=== PATIENT | male | born 1945 | race Caucasian/White ===

== ENCOUNTER 2017-05-08 07:21 | Inpatient (IN) | payer MEDICARE ==
[~2017-05-08] VITALS: Ht 180.3 cm; Wt 91.6 kg
[2017-05-08] VITALS (8 sets, daily range): BP systolic 126–165; BP diastolic 62–100
[2017-05-08 07:40] LABS: ABSOLUTE BASOPHILS 0.1 thou/uL (0.0-0.2); ABSOLUTE EOSINOPHILS 0.1 thou/uL (0.0-0.7); ABSOLUTE LYMPHOCYTES 1.1 thou/uL (0.8-5.3); ABSOLUTE MONOCYTES 0.6 thou/uL (0.0-1.2); ABSOLUTE NEUTROPHILS 4.2 thou/uL (1.6-8.1); BASOPHILS 1.1 %; EOSINOPHILS 1.7 %; HEMATOCRIT 47.8 % (42.0-52.0); HEMOGLOBIN 16.1 gm/dL (14.0-18.0); LYMPHOCYTES 18.6 %; MCH 30.1 pg (26.0-34.0); MCHC 33.6 g/dL (28.0-37.0); MCV 89.6 fL (80.0-100.0); MONOCYTES 9.9 %; NUCLEATED RBCS 0 /100WBC; PLATELET COUNT* 295 thou/uL (150-400); POLYS 68.7 %; RBC 5.34 mil/uL (4.50-6.00); RDW-CV 13.1 % (10.5-14.5); WBC 6.1 thou/uL (4.0-11.0)
[2017-05-08 07:49] LABS: ANION GAP 6 mmol/L (7-16); BUN 17 mg/dL (7-18); CALCIUM 8.7 mg/dL (8.5-10.1); CHLORIDE 105 mmol/L (98-107); CO2 29 mmol/L (21-32); CREATININE 1.3 mg/dL (0.6-1.3); GLUCOSE 110 mg/dL (70-99); POTASSIUM 4.8 mmol/L (3.5-5.1); SODIUM 140 mmol/L (136-145)
[2017-05-08 07:56] LABS: ALBUMIN 3.7 g/dL (3.4-5.0); ALKALINE PHOSPHATASE 95 U/L (46-116); SGOT 22 U/L (15-37); SGPT 31 U/L (30-65); TOTAL BILIRUBIN 0.5 mg/dL (<0.1-1.0); TOTAL PROTEIN 7.6 g/dL (6.4-8.2); TROPONIN-I LEVEL <0.06 ng/mL (<0.06)
[2017-05-08 08:23] LABS: APTT 28.7 Seconds (25.0-31.3); PROTIME 9.8 Seconds (9.20-11.50)
[2017-05-08 08:32] LABS: POC CA IONIZED 4.5 mg/dL (4.5-5.3); POC CREATININE 1.2 mg/dL (0.6-1.3); POC HEMOGLOBIN 15.6 g/dL (12.0-17.0); POC POTASSIUM 4.7 mmol/L (3.5-4.9)
--- NOTE | 2017-05-08 08:47 | NUR ---
PT STATES NAUSEA COMES AND GOES STATES H/A STILL 06/23
[2017-05-08] MEDS ORDERED: ASPIR 8181 MG PO (08:48)
--- NOTE | 2017-05-08 09:25 | NUR ---
PT ARRIVED ON TELE FROM ER. REPORT TAKEN FRON JAS AGUILAR. PT ON CARDIAC MONITER TRACING SR 1ST DEGREE HR 81. PT C/O HEADACHE PAIN RATES A 6 ON PAIN SCALE. PT STATES HE WAS GIVEN ASPIRIN AND ZOFRAN IN ER 30 MIN AGO AND STILL HAS NAUSEA. PT R/T HIS HEADACHE. PT DESCRIPTION PAIN RADIATES AROUND HIS L EYE DIRECTLY ABOVE AND TO THE RIGHT. GAVE PT A COLD COMPRESS . VSS WNL, PT IS AFEBRILE. HE IS ON ROOM AIR AND HAS CLEAR LUNGS. PT STATES HE HAS A HYPER THYROID AND AN ENLARGED POSTRATE. HIS SPEECH IS CLEAR AND ANSWERS SPONTANEOUSLY.PT STATES HE WAS BORN CROSS EYED AND HAD 2 SURGERIES FOR THIS. 1ST SURG NOT ENOUGH MUSCLE CUT 2ND SURG TOO MUCH CUT PER PT. WM.
[2017-05-08 11:42] LABS: CHOLESTEROL 175 mg/dL (<200); HDL CHOLESTEROL 58 mg/dL (>40); LDL CHOLESTEROL 103 mg/dL (<100); TRIGLYCERIDE 73 mg/dL (<150); VLDL 15 mg/dL (<40)
[2017-05-08 11:43] LABS: SERUM ASSESSMENT Clear
[2017-05-08] MEDS ORDERED: FLOMAX0.4 MG PO (11:52)
[2017-05-08] MEDS ORDERED: METHIMAZOLE10 MG PO (11:52)
--- NOTE | 2017-05-08 12:01 | NUR ---
PTS IS HERE AND STATES PT HAS SEEN SQUIGGLEY LINES IN L EYE FOR 2 TO 3 MONTHS AND HAS NOT BEEN SLEEPING WELL. [facility] SHE SAID HIS APHSIA WAS COMING AND GOING. NOTIFIED DR BY YOU CALL ME AND HE CALLED BACK FOR UPDATE.
--- NOTE | 2017-05-08 14:15 | NUR ---
DR ALSTON CALLED RE PTS MRI. CALLED DR LUCAS AND GAVE REPORT FROM DR ALSTON. CALL PUT IN DR RIOS. ORDER FROM DR RIVERA FOR A SOFT DIET.
--- NOTE | 2017-05-08 15:01 | 2DMMODE ---
[place] [address] 2 D/M-MODE ECHOCARDIOGRAM Name: SHAKIRA MILLARD Room: [address] IN [facility] [id number] Admission: 05/08/17 Attend Phys: Lan Viveros Discharge: Date of : 47 Date of Service: 05/08/17 [facility] Report #: [id number] THIS REPORT FOR: //name// APPROVED REPORT Study performed: 05/08/2017 11:57:53 EXAM: Comprehensive 2D, Doppler, and color-flow Echocardiogram and bubble study Patient Location: In-Patient Room #: [facility] Status: routine BSA: 2.15 HR: 74 bpm BP: 139/82 mmHg Rhythm: NSR Other Information Study Quality: Good Indications CVA/TIA Echo Enhancing Agent Indication: Rule out Shunt Agent(s) / Amount(s) Used: Agitated Saline 10 cc 2D Dimensions LVEF(%): 63.91 (>50%) IVSd: 14.37 (7-11mm) LVOT Diam: 20.11 (18-24mm) LVDd: 34.76 mm PWd: 11.54 (7-11mm) Ascending Ao: 31.61 (22-36mm) LVDs: 22.97 (25-40mm) Aortic Root: 30.72 mm Camejo's LVEF: 63.91 % Volumes Left Atrial Volume (Systole) LA ESV Index: 17.90 mL/m2 Aortic Valve AoV Peak Rafa.: 1.20 m/s AO Peak Gr.: 5.78 mmHg LVOT Max P.96 mmHg AO Mean Gr.: 2.86 mmHg LVOT Mean P.99 mmHg LVOT Max V: 0.99 m/s AO V2 VTI: 25.22 cm LVOT Mean V: 0.65 m/[place] [address] 2 D/M-MODE ECHOCARDIOGRAM Name: SHAKIRA MILLARD Room: [address] IN .R.#: [id number] Admission: 05/08/17 Attend Phys: Lan Viveros Discharge: Date of : 47 Date of Service: 05/08/17 1500 Report #: [id number] CARLIN (VTI): 2.52 cm2 LVOT V1 VTI: 19.98 cm Mitral Valve E/A Ratio: 0.74 MV Decel. Time: 279.71 ms MV E Max Rafa.: 0.53 m/s MV PHT: 81.12 ms MVA (PHT): 2.71 cm2 TDI E/Lateral E': 6.63 E/Medial E': 7.57 Medial E' Rafa.: 0.07 m/s Lateral E' Rafa.: 0.08 m/s Pulmonary Valve PV Peak Rafa.: 0.86 m/s PV Peak Gr.: 2.93 mmHg Left Ventricle The left ventricle is normal size. There is normal LV segmental wall motion. Mild concentric left ventricular hypertrophy. Left ventricular systolic function is normal. The left ventricular ejection fraction is within the normal range. LVEF is 65-70%. Grade I - abnormal relaxation pattern. Right Ventricle The right ventricle is normal size. The right ventricular systolic function is normal. Atria The left atrium size is normal. Interatrial septum is intact without evidence of ASD or PFO. The right atrium size is normal. Aortic Valve The aortic valve is normal in structure. No aortic regurgitation is present. There is no aortic valvular stenosis. Mitral Valve The mitral valve is normal in structure. There is no mitral valve regurgitation noted. No evidence of mitral valve stenosis. Tricuspid Valve The tricuspid valve is normal in structure. Unable to assess PA pressure. Trace tricuspid regurgitation. Pulmonic Valve The pulmonary valve is normal in structure. There is no [place] [address] 2 D/M-MODE ECHOCARDIOGRAM Name: SHAKIRA MILLARD Room: [address] IN M.R.#: [id number] Admission: 05/08/17 Attend Phys: Lan Viveros Discharge: Date of : 47 Date of Service: 05/08/17 1500 Report #: [id number] valvular regurgitation. Great Vessels The aortic root is normal in size. IVC is normal in size and collapses with >50% inspiration Pericardium There is no pericardial effusion. <Conclusion> Mild concentric left ventricular hypertrophy. LVEF is 65-70%. Interatrial septum is intact without evidence of ASD or PFO. <ELECTRONICALLY SIGNED> By: Ugo Narayan MD, FACC 05/08/17 1500 1500 1500 Ugo Narayan MD, FACC /INF
--- NOTE | 2017-05-08 15:34 | EKG ---
[place] [address] ELECTROCARDIOGRAM REPORT Name: SHAKIRA MILLARD Room: [address] ADM IN .R.#: [id number] Admission: 05/08/17 Attend Phys: Lan Cool, Discharge: Date of : 47 Report #: [id number] THIS REPORT FOR: //name// [facility] ED Test Date: 2017-05-08 Test Time: 08:17:04 Pat Name: SHAKIRA MILLARD Department: Room: [facility] Gender: M Car Mechanic: BALDO : 1945 Requested By: Nathaniel Kat Order Number: [id number] MD: Ugo Narayan Measurements Intervals [place] Rate: 83 P: 30 CT: 198 QRS: 46 QRSD: 95 T: 43 QT: 380 QTc: 447 Interpretive Statements Sinus rhythm No previous ECG available for comparison Electronically Signed On 05-08-2017 15:34:43 REAL ESTATE EXECUTIVE ASSISTANT by Ugo Narayan [email or web address] <ELECTRONICALLY SIGNED> By: Ugo Narayan MD, [facility] 05/08/17 1534 0817 6 Ugo Narayan MD, FACC /EPI
--- NOTE | 2017-05-08 17:45 | NUR ---
PT HAS BEEN SLEEPING MOST OF THIS SHIFT. HE STATED HE WAS FRUSTRATED WHEN HE CANNNOT GET HIS THOUGHTS QUICK ENOUGH. PT ON A NECTAR THICK MECHANICAL SOFT DIET FOR THE NEXT FEW DAYS PER ST. PT STATES HIS HEADACHE PAIN HAS STAYED AROUND 3 AND IS MUCH BETTER. PT'S STATES HIS SPEECH IS CLEAR BUT THOUGHT PROCESSES SOMETIMES CAN TAKE A MOMENT AND SHE [facility]. SHE SAID HE HAS BEEN FRUSTRATED WITH THIS. DR RIOS CONSULTED. PT SCORED 0 ON NIH. HOURLY ROUNDING COMPLETE. EDUCATION GIVEN ON DEMAND.
--- NOTE | 2017-05-08 22:00 | NUR ---
UPON ASSESSMENT, PATIENT NOTICED TO HAVE SEVERE APHASIA AND MILD-MODERATE DYSARTHRIA WITH NIH SCORE 3. PATIENT WAS PREVIOUSLY SCORED 0. DR. RIOS NOTIFIED OF CHANGE IN NIH SCORE AND RESULTS OF CAROTID US COMMUNICATED AT THIS TIME. DR. RIOS ORDERED A 500CC BOLUS TO INCREASE PATIENT'S BP, KEEP PATIENT FLAT AT ALL TIMES, AND STAT CTA HEAD/NECK. PATIENT TAKEN DOWN FOR SCAN, TOLERATED WELL. PATIENT BACK ON UNIT AT THIS TIME. PATIENT CONTINUES TO C/O HEADACHE. RECIEVED ORDERS FOR PRN TYLENOL. WILL ADMINISTER. CALL LIGHT WITHIN REACH
--- NOTE | 2017-05-08 23:41 | NUR ---
UPON OBTAINING VS, PATIENT REQUESTED ASSISTANCE TO USE THE URINAL. AT THIS TIME, PATIENT NOTED TO HAVE DIFFICULTY WITH MOVEMENT IN RIGHT ARM. PATIENT WAS UNABLE TO LIFT ARM. PATIENT CONTINUING TO HAVE APHASIA AND DYSARTHRIA. VASCULAR SURGERY PAGED MULTIPLE TIMES. EVENTUALLY SPOKE WITH DR. BURCH AT 9815. NO ORDERS RECIEVED PER VASCULAR HE STATED "THIS IS A MEDICAL DECISION AND SURGERY IS NOT BEING PERFORMED TONIGHT, I WILL SEE THE PATIENT IN THE MORNING AND SEE HOW HE IS DOING CLINICALLY. CONSULT WITH NEUROLOGY TO SEE WHAT BLOOD THINNERS HE WOULD LIKE THE PATIENT TO RECIEVE." THIS CONVERSATION COMMUNICATED TO DR. RIOS. ORDERS RECIEVED FOR ONETIME DOSE OF PLAVIX, NS BOLUS, KEEP PATIENT LYING FLAT, AND TRANSFER TO ICU, IF OK WITH PRIMARY. DR. PEARSON PAGED AND ORDERS OBTAINED TO GO AHEAD AND TRANSFER PATIENT TO ICU. ATTEMPTED TO CALL ON BOTH NUMBERS ON FILE, MESSAGE LEFT NOTIFYING HER THAT THERE WERE UPDATES TO BE GIVEN AND TO CALL BACK. UNIT NUMBER LEFT IN MESSAGE.
[2017-05-09] VITALS (26 sets, daily range): BP systolic 111–168; BP diastolic 51–100
--- NOTE | 2017-05-09 00:16 | CON ---
[address] [address] CONSULTATION Name: SHAKIRA MILLARD Room: [address] ADM IN M.R.#: [id number] Admission: 05/08/17 Attend Phys: Lan Cool, Discharge: Date of : 47 Report #: [id number] THIS REPORT FOR: //name// CC: FAM unknown Lan Cool [facility] DATE OF SERVICE: 05/08/2017 HISTORY OF PRESENT ILLNESS: This is a 72-year-old male patient who was evaluated by me because he got up at 5:30 this morning and noticed that his speech was slurred and he had some weakness on the right side. His symptoms have improved, but he still has some speech difficulty. The symptoms are moderately severe now, but he had more difficulty earlier today. It came spontaneously without any trauma and nothing makes it better or worse. REVIEW OF SYSTEMS: Indicate that he did not have any stroke in the past. He was taking a baby aspirin when it happened. He had started taking baby aspirin 6 months ago because his nurse practitioner and his advised him to do that. He did not have any cardiac issues. He had some ophthalmological issues since. He does not have any new ENT, cardiac, respiratory, GI, , musculoskeletal, constitutional, dermatological, hematological, psychiatric, throat, allergic, endocrine symptom associated with present symptomatology. PAST MEDICAL HISTORY: Negative for stroke. FAMILY HISTORY: Negative for early age stroke. SOCIAL HISTORY: The patient used to smoke and drink alcohol, but gave up a few years ago. It was not because of any medical reason and it was because his told him to. PHYSICAL EXAMINATION: Indicate that the patient is alert, responsive, able to follow simple command. He has moderate amount of hesitation on some words, but he is still able to do the conversation most of the time, but sometime he struggles. He believes his memory and fund of knowledge is his baseline. Cranial nerve examination 2-12 is difficult to carry out because of his baseline ophthalmological issues. Because of the same thing, it is difficult to check for hemianopsia, but I do not see any facial palsy or any other abnormality there. His strength, sensation, reflexes and tones are symmetrical. He does not have any cerebellar sign. I could not look at the patient's fundus. He is a well-developed individual who does not have any dysmorphic features of eyes, ears and face. He does not have any respiratory difficulty or rhonchi on either side. His heart shows no atrial fibrillation, no abnormality of the heart sound or murmur. He has no edema, cyanosis or jaundice. His pulses are palpable. His blood pressure is 152/87, respirations 16, pulse is 79, and temperature is [facility] [address] [place] [address] CONSULTATION Name: SHAKIRA MILLARD Room: [address] IN M.R.#: [id number] Admission: 05/08/17 Attend Phys: Lan Cool, Discharge: Date of : 47 Report #: [id number] 97.3. LABORATORY DATA: His white count is 6.1. His sodium is normal. His MRI demonstrated acute CVA. His MRA of the brain looks unremarkable. IMPRESSION: 1. Cerebrovascular accident. 2. His vessels look clean so far and we may have to look at closely for any source of cardiac embolization. 3. This happened in spite of being on low-dose of aspirin. 4. He needs to be checked for dyslipidemia. RECOMMENDATIONS: 1. MRA of the carotids. 2. Lipid profile. 3. Full ophthalmology examinations including visual field as an outpatient. 4. PT/OT evaluation. 5. After the workup, we may have to do 30 days event monitoring as an outpatient. 6. Presently, we will put him on full-dose aspirin, but later on, may have to change it to Plavix. All of it was discussed with the patient and the patient is agreeable with that. Thank you very much for this referral and if you have any question, please feel free to contact me. Addendum This addendum is being added at time of signing this order. I talked to multiple times the nurses riri. 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 His symptoms are fluctuating with aggravation of his symptoms.He may be trying to occlude his vessel. Unfortuntely there is nothing much can be done about that. I had talked the nurses to page vascular surgery for me and see if I can talk to them to see if they have anything to offer. I had given my phone number to them. I have not been able to talk to them but as I understand from nurses they have informed her that there is nothhing they can do. I have given him fluids. We will give him Plavix. Heparin has never been found be effective in this siuation. Pressors had been tried but the value is questionable. We will try to keep him flat. Unfortunately many of these patients land up completing their strokes in these circustance. I also called [facility] stroke team and they also do not have anything else to offer except the things mentioned above. More than 60 minutes of time was spent taking care of this patient today <ELECTRONICALLY SIGNED> By: Yuval Adkins MD 05/09/17 0016 1510 [id number] trey Leahy
--- NOTE | 2017-05-09 00:34 | NUR ---
PT TRANSFERRED TO ICU BED 3 FROM TELE AT 0020. NIH AND COMPLETE REASSESSMENT COMPLETED, SEE DOCUMENTATION. PT EXHIBITS MILD DYSARTHRIA WITH SOME SLOWING OF SPEECH AND WORD RECALL, HOWEVER SPOKEN WORKS ARE CLEAR. PT IS ABLE TO HOLD BOTH ARMS EXTENDED AND PARALLEL WITHOUT DRIFT AND MINIMAL WAIVERING OF RUE. CALL RECEIVED FROM DR RIOS AT THIS TIME STATING THAT THE GOAL FOR TONIGHT TO KEEP PT FLAT AND MAINTAIN SBP >140-150. AWAITING ORDERED 500ML NS BOLUS IN PYXIS. DR RIOS STATED TO START LEVOPHED GTT TO MAINTAIN SBP >140 IF FLUID BOLUS IS NOT ADEQUATE. CALL LIGHT WITHIN REACH.
[2017-05-09 04:39] LABS: HEMATOCRIT 44.9 % (42.0-52.0); HEMOGLOBIN 15.2 gm/dL (14.0-18.0); MCH 30.1 pg (26.0-34.0); MCHC 33.8 g/dL (28.0-37.0); MCV 89.1 fL (80.0-100.0); MPV 8.2 fl. (7.2-11.1); RBC 5.04 mil/uL (4.50-6.00); RDW-CV 13.1 % (10.5-14.5); WBC 9.4 thou/uL (4.0-11.0)
[2017-05-09 04:53] LABS: ALBUMIN 3.1 g/dL (3.4-5.0); CALCIUM 7.9 mg/dL (8.5-10.1); POTASSIUM 4.5 mmol/L (3.5-5.1); TOTAL BILIRUBIN 0.5 mg/dL (<0.1-1.0); TOTAL PROTEIN 6.6 g/dL (6.4-8.2)
--- NOTE | 2017-05-09 07:21 | NUR ---
PT REMAINS STABLE, NIH HAS REMAINED 1 THROUGHOUT THE NIGHT. PT HAS DENIED PAIN AND SOA. WHILE SLEEPING PTS O2 SAT INTERMITTENTLY DROPPED TO MID 80'S, 2L O2 PLACED PER NC. LEVOPHED GTT STARTED DUE TO SBP <140, TITRATED TO 5 MCG/MIN WHICH HAS MAINTAINED SBP >140. IVF INFUSING ORDERED. CALL LIGHT WITHIN REACH.
[2017-05-09 09:33] LABS: HEMATOCRIT 45.2 % (42.0-52.0); HEMOGLOBIN 15.3 gm/dL (14.0-18.0); MCH 30.2 pg (26.0-34.0); MCHC 33.8 g/dL (28.0-37.0); MCV 89.4 fL (80.0-100.0); MPV 7.9 fl. (7.2-11.1); RBC 5.06 mil/uL (4.50-6.00); RDW-CV 12.6 % (10.5-14.5); WBC 7.1 thou/uL (4.0-11.0)
[2017-05-09 09:40] LABS: APTT 29.5 Seconds (25.0-31.3); PROTIME 10.1 Seconds (9.20-11.50)
--- NOTE | 2017-05-09 11:02 | NUR ---
PLEASE RESUBMIT ORDERS DUE TO CHANGE IN STATUS WHEN APPROPRIATE
--- NOTE | 2017-05-09 12:17 | NUR ---
PATIENT CARE ASSUMED AT 0700. PATIENT AWAKE UPON ENTERING ROOM WITH UTILIZATION REVIEW RN NURSE. NIH COMPLETED, RESULT IS 1 FOR VERY MILD DISARTHRIA AND WORD FINDING DIFFICULTIES. WAS ON LEVOPHED UPON ASSUMING CARE PER NEUROLOGY TO KEEP SYSTOLIC BP 140-150. NO CARDIAC HISTORY OR ISSUES WITH BLOOD PRESSURE NOTED. LEVOPHED TURNED OFF SYSTOLIC BP BEGAN TO RISE TO 180S. CURRENTLY BACK TO SYSTOLIC 140-150 RANGE. PAITENTS MAIN COMPLAINT IS BURNING UPON URINATION. THIS NURSE GAVE PATIENT CLEAN URINAL FOR SAMPLE, BUT HE HAS NOT VOIDED SINCE RECIEVING URINAL. NEUROLOGY SAW PATIENT AND DISCONTINUED FLUIDS, BUT PATIENT NOT TAKING PO FLUIDS WELL HE DOES NOT LIKE THE NECTAR THICKENED FLUIDS. PER NEUROLOGY IF PATIENT CONTINUES TO NOT DRINK FLUIDS, FLUIDS WILL NEED TO BE REORDERED. VASCULAR SAW PATIENT, PLANS FOR SURGERY ON THURSDAY IF PATIENT'S SYMPTOMS WELL CONTROLELD. NEW IV STARTED IN RIGHT HAND. HEPARIN GTT ORDERED BY VASCULAR AND INITIATED. WILL CONTINUE WITH THIS PLAN OF CARE.
[2017-05-09 12:46] LABS: URINE BILIRUBIN NEGATIVE (Negative); URINE BLOOD 3+ (Negative); URINE CLARITY CLEAR; URINE COLOR YELLOW; URINE GLUCOSE-RANDOM NEGATIVE (Negative); URINE KETONES NEGATIVE (Negative); URINE LEUKOCYTES-REFLEX NEGATIVE (Negative); URINE NITRITE-REFLEX NEGATIVE (Negative); URINE PROTEIN NEGATIVE (Negative); URINE UROBILINOGEN 0.2 E.U./dl (0.2-1.0)
[2017-05-09 12:58] LABS: BACTERIA-REFLEX 1-9 Few /HPF (None Seen); CASTS None Seen /LPF (None Seen); CRYSTALS None Seen /LPF (None Seen); MUCUS 0-3 Light strn/LPF (None Seen); SQUAMOUS 0-3 Few /LPF (0-3); URINE WBC-REFLEX 0-5 Rare /HPF (0-5)
--- NOTE | 2017-05-09 17:29 | NUR ---
PATIENT PROGRESSING TOWARDS GOALS. AFTER CT IT WAS FOUND THAT PATIENT'S BLADDER WAS FULL. PATIENT WAS UNABLE TO VOID FULL BLADDER. BLADDER SCAN SHOWED >999 MLS. STRAIGHT CATHED WITH 850 OUT. RESIDUAL 150. PYRIDUM GIVEN SO URINE IS ORANGE AND CLEAR. UA SENT. ON IV ROCEPHIN FOR UTI AT THIS TIME. NIH SCALES REMAINS ONE. PATIENT GAINED APPETITE THROUGHOUT THE SHIFT, BUT IS RESISTANT TO THICKENED LIQUIDS. REPEAT BEDSIDE SWALLOW BY THIS RN. PATIENT TOLERATING THIN LIQUIDS WELL AT THIS TIME WITH NO COUGH, DROP IN O2, OR WET SOUNDING VOICE. PROVIDED WITH THIN LIQUIDS. PATIENT RESTING IN BED WITH PRESENT AT THIS TIME.
--- NOTE | 2017-05-09 22:00 | NUR ---
516CC BLADDER SCAN URINE RESIDUAL NOTED, PT USING URINAL TO VOID IMMEDIATLEY POST BLADDER SCAN DONE TO EMPTY BLADDER, VOIDING 25CC ORANGE URINE, STRAIGHT CATHETERIZATION PER ORDER, 450CC ORANGE URINE DRAINED.
[2017-05-10] VITALS (17 sets, daily range): BP systolic 103–158; BP diastolic 48–92
[2017-05-10 05:57] LABS: HEMATOCRIT 46.2 % (42.0-52.0); HEMOGLOBIN 15.5 gm/dL (14.0-18.0); MCH 30.3 pg (26.0-34.0); MCHC 33.5 g/dL (28.0-37.0); MCV 90.3 fL (80.0-100.0); MPV 8.1 fl. (7.2-11.1); RBC 5.11 mil/uL (4.50-6.00); RDW-CV 12.8 % (10.5-14.5); WBC 8.8 thou/uL (4.0-11.0)
--- NOTE | 2017-05-10 12:33 | EKG ---
[place] [address] ELECTROCARDIOGRAM REPORT Name: SHAKIRA MILLARD Room: [address] ADM IN M.R.#: [id number] Admission: 05/08/17 Attend Phys: Lan Cool, Discharge: Date of : 47 Report #: [id number] THIS REPORT FOR: //name// [facility] Test Date: 2017-05-09 Test Time: 13:56:55 Pat Name: SHAKIRA IMLLARD Department: Room: [address] Gender: M Traveling Sales Executive: CBK : 1945 Requested By: Lan Cool Order Number: [id number] Reading MD: José Antonio Castillo Measurements Intervals [place] Rate: 83 P: 39 ND: 195 QRS: 28 QRSD: 99 T: 36 QT: 360 QTc: 423 Interpretive Statements Sinus rhythm Compared to ECG 05/08/2017 08:17:04 No significant changes Electronically Signed On 05-10-2017 12:32:54 BUS INFO CONSULTANT by José Antonio Castillo [email or web address] <ELECTRONICALLY SIGNED> By: José Antonio Castillo MD, [facility] 05/10/17 1232 1356 [id number] José Antonio Castillo MD, FACC /EPI
--- NOTE | 2017-05-10 17:43 | NUR ---
PATIENT ASSESSMENT REMAINS UNCHANGED. LEFT CAROTID ENDARCTARECTOMY SCHEDULED FOR TOMORROW. DR. BURCH INFORMED PATIENT OF PROCEDURE AND RISKS. CONSENT SIGNED WITH THIS NURSE WITNESSING. PATIENT WILL BE NPO AFTER MIDNIGHT, AND IS AWARE OF THIS. REMAINS ON HEPARIN GTT, CURRENTLY AT 1255 UNITS/HR. APPT TO BE DRAWN AT 1800. PATIENT HAS RESTED ADEQUATELY ALL DAY. BOTH Q6H BLADDER SCANS DURING THIS SHIFT HAVE BEEN LESS THAN 350. URINE REMAINS BLOODY WITH SMALL CLOTS AFTER STRAIGHT CATH X2 IN THE LAST 24 HOURS. DENIES FURTHER NEEDS FROM NURSING AT THIS TIME.
[2017-05-11] VITALS (14 sets, daily range): BP systolic 90–164; BP diastolic 47–95
--- NOTE | 2017-05-11 06:40 | NUR ---
PROGRESSING TOWARDS GOALS, RESTING QUIETLY WITH EYES CLOSED MOST OF NOC, EASILY AROUSABLE TO VERBAL STIMULI, DENIES PAIN OR DISCOMFORT, PVR THIS AM 417, PT REFUSED STRAIGHT CATHETER ORDERED FOR PVR >350CC, EDUCATED ADVERSE EFFECTS URINE RESIUAL INCREASES, PT VERBALIZED UNDERSTANING, STATES "GIVE ME A LITTLE MORE TIME TO WORK ON GOING", ABLE TO VOID 100CC DARK TEA URINE VIA URINAL 15 MIN POST BLADDER SCAN. SHANNEN SOA, REMAINS ON OXYGEN 2L PER NC, SA02 =>96% , NSR TRACING HEALTH INFORMATION MANAGERS, NIH REMAINS 1, NPO AFTER MIDNIGHT FOR ENDARECTOMY TODAY.
[2017-05-11 07:03] LABS: HEMOGLOBIN 15.5 gm/dL (14.0-18.0); MCH 30.3 pg (26.0-34.0); MCHC 33.6 g/dL (28.0-37.0); MCV 90.2 fL (80.0-100.0); MPV 8.1 fl. (7.2-11.1); RBC 5.1 mil/uL (4.50-6.00); RDW-CV 13.1 % (10.5-14.5); WBC 6.8 thou/uL (4.0-11.0)
[2017-05-11 07:30] LABS: ALBUMIN 3.2 g/dL (3.4-5.0); ALKALINE PHOSPHATASE 87 U/L (46-116); ANION GAP 4 mmol/L (7-16); BUN 18 mg/dL (7-18); CALCIUM 8.5 mg/dL (8.5-10.1); CHLORIDE 105 mmol/L (98-107); CO2 30 mmol/L (21-32); CREATININE 1.2 mg/dL (0.6-1.3); GLUCOSE 102 mg/dL (70-99); MAGNESIUM 2.2 mg/dL (1.8-2.4); POTASSIUM 4.4 mmol/L (3.5-5.1); SGOT 27 U/L (15-37); SGPT 29 U/L (30-65); SODIUM 139 mmol/L (136-145); TOTAL BILIRUBIN 0.4 mg/dL (<0.1-1.0); TROPONIN-I LEVEL <0.06 ng/mL (<0.06)
--- NOTE | 2017-05-11 10:21 | NUR ---
PATIENT CARE ASSUMED AT 0700. PATIENT AOX4 UPON ENTERING ROOM. DENIES PAIN. NIH 1. REMAINS ON HEPARIN GTT PRIOR TO CEA AT 1400. HEPARIN TO BE STOPPED IN PRE-OP PER DR BURCH. CONSENT SIGNED. PATIENT HAS BEEN NPO SINCE MIDNIGHT. IN WITH PATIENT. BOTH DENY FURTHER NEEDS FROM NURSING AT THIS TIME.
--- NOTE | 2017-05-11 10:30 | NUR ---
CHART REVIEWED, SPOKE WITH PT. HE LIVES AT HOME WITH HIS , HAS BEEN ACTIVE AND INDEP INCLUDING WORKING. PT FEELS THAT HIS SPEECH IS BACK TO BASELINE. PT TO HAVE CAROTID ENDARTERECTOMY TODAY. PT IS HOPING HE CAN GO HOME TOMORROW. PT DENIES ANY DISCHARGE NEEDS. DISCUSSED ROLE OF CASE MGT, WILL CONTINUE TO FOLLOW. [facility]
--- NOTE | 2017-05-11 12:09 | NUR ---
PATIENT REQUESTING NOT TO BE STRAIGHT CATHED FOR PVR OF 535. WANTS TO ATTEMPT TO URINATE ON HIS OWN.
--- NOTE | 2017-05-11 16:18 | NUR ---
PATIENT LEFT UNIT FOR LEFT CEA AT 1538.
--- NOTE | 2017-05-11 18:56 | NUR ---
PATIENT RETURNED FROM SURGERY OF LEFT CAROTID AT 1745. RETURNED AWAKE. SIMPLE MASK PLACED ON PATIENT AT 15L. WEANED TO 2L NC TO MAINTAIN SATS ABOVE 92%. PATIENT AOX4. PLEASANT. DENIES PAIN. INCISION SITE TO LEFT NECK REMAINS INTACT WITH DERMABOND IN PLACE. RIGHT RADIAL ART LINE IN PLACE. VITALS WITH EXCEPTION OF BLOOD PRESSURE IN NORMAL LIMITS. BLOOD PRESSURES SYSTOLIC 200/80S. ONETIME LABETALOL GIVEN PER DR YAP. BLOOD PRESSURE TRENDING DOWN. ABLE TO TOLERATE FLUIDS. PROVIDED WITH DINNER. NIH CURRENTLY A 1 FOR CONTINUED MILD WORD FINDING DIFFICULTIES. ALLOWED FAMILY TO VISIT WITH PATIENT. DENIES FURTHER NEEDS FROM NURSING. REPORT GIVEN TO JAS ALMEIDA.
--- NOTE | 2017-05-11 21:30 | NUR ---
PT UNABLE TO VOID POST ENDARTECTOMY PROCEDURE, 904ML URINE RESIDUAL NOTED PER BALDDER SCAN, PT GRIMACING WITH PALPATION TO BLADDER, 800CC DARK CONTRERAS URINE RETURN VIA STRAIGHT CATHETERIZATION, HOME DOSE FLOMAX STARTED TONIGHT PER ORDER. SON AT BEDSIDE, PT AWAKE, ALERT, AND CONVERSATIVE, INSTRUCTED USE OF CALL LIGHT FOR NEEDS, WANTS, OOB, OR ANY CHANGE IN CONDITON.
[2017-05-12] VITALS (11 sets, daily range): BP systolic 79–128; BP diastolic 37–80
--- NOTE | 2017-05-12 06:14 | NUR ---
PROGRESSING TOWARDS GOALS, NIH REMAINS 1 FOR MINIMAL WORD FINDING DIFFICULTY, RESTING QUIETLY WITH EYES CLOSED MOST OF NOC, EASILY AROUSABLE TO VERBAL STIMUL, CONTINUES TO HAVE DIFFICULTY VOIDING, STATES NO URGE TO VOID THIS AM, BLADDER SCAN DONE AT 0530, PER BLADDER SCAN 245ML URINE RESIDUAL IN BLADDER, PER ORDER PT NOT STRAIGHT CATHETERIZED AT THIS TIME, TYLENOL 650MG PO GIVEN X1 FOR 3/10 ON NUMERICAL PAIN SCALE, LEFT INCISONAL PAIN S/P LEFT CAROTID ENDARTECTOMY SITE, INCISION REMAINS C/D/I WITH EDGES WELL APPROXIMATED, MINIMAL EDEAM TO INCISIONAL SITE, B/P SOFT 90'S SYSTOLIC OVER 40'S-50'S DIASTOLIC DURING SLEEP, ASYMPTOMATIC, SB/SR TRACING COSMETOLOGY PROFESSOR HR HIGH 50'S TO LOW 70'S, NO ADVERSE EFFECTS IV ABT'S, USING CALL LIGHT FOR NEEDS, CALL LIGHT REMAINS IN REACH, BED REMAINS IN LOW AND LOCKED POSITION.
--- NOTE | 2017-05-12 08:14 | NUR ---
ASSUMED CARE OF PATIENT AFTER RECEIVING BEDSIDE REPORT. ASSESSMENT COMPLETED, VSS. PATIENT DENIES COMPLAINTS AND CONCERNS. NIH-1 FOR MILD APHASIA. PATIENT REPORTS ONLY MILD SORENESS AT INCISION SITE. PATIENT RESTING COMFORTABLY IN BED. BLOOD PRESSURE WNL. ART LINE REMAINS IN PLACE PATIENT WAS HYPOTENSIVE OVERNIGHT. LYE PEEL OPERATOR IN PLACE, SINUS RHYTHM NOTED. BED ALARM ON. CALL LIGHT WITHIN REACH, USE REINFORCED. WILL CONTINUE TO MONITOR.
[2017-05-12] MEDS ORDERED: ASA5UEC PO (12:48)
[2017-05-12] MEDS ORDERED: ATORVASTATIN CA20 MG PO (12:49)
--- NOTE | 2017-05-12 14:28 | NUR ---
I have reviewed the documentation by KENNA TAMEZ from 05/12/17 to 05/12/17 and I concur with it. CHRYSTAL DOUGHERTY
--- NOTE | 2017-05-12 15:20 | OP ---
[address] [address] OPERATIVE REPORT Name: SHAKIRA MILLARD Room: [address] M.R.#: [id number] Admission: 05/08/17 Attend Phys: Lan Cool, Discharge: 05/12/17 Date of : 47 Report #: [id number] THIS REPORT FOR: //name// CC: FAM unknown Lan Cool [facility] DATE OF SERVICE: 05/11/2017 PREOPERATIVE DIAGNOSIS: Symptomatic high-grade left carotid artery stenosis. POSTOPERATIVE DIAGNOSIS: Symptomatic high-grade left carotid artery stenosis. OPERATION: 1. Left carotid endarterectomy with bovine pericardial patch angioplasty. 2. Completion intraoperative duplex. SURGEON: Remington Montoya DO. BOX FOLDING MACHINE OPERATOR: SANDHYA Koo. ANESTHESIA: General. ESTIMATED BLOOD LOSS: 100 mL. FLUIDS: 800 mL crystalloid. URINE OUTPUT: None. SPECIMENS: Left carotid plaque. IMPLANTS: A 0.8 x 8 bovine pericardial patch to left carotid artery. COMPLICATIONS: None. FINDINGS: The left carotid artery had an approximately 80% friable stenosis. This endarterectomized well with a good distal endpoint. Completion intraoperative duplex demonstrated no intraluminal defects with good continuous diastolic flow through the internal carotid artery. CLINICAL HISTORY: The patient is a 72-year-old man who presented to the Emergency Room late last week with expressive aphasia and right arm weakness, was found to have an acute left hemispheric stroke. Symptoms had stabilized and he was recommended for left carotid endarterectomy as workup demonstrated a high-grade left carotid stenosis, likely from a ruptured plaque [place] [address] OPERATIVE REPORT Name: VENICE,SHAKIRA Room: [address] M.R.#: [id number] Admission: 05/08/17 Attend Phys: Lan Cool, Discharge: 05/12/17 Date of : 47 Report #: [id number] DETAILS OF PROCEDURE: After informed consent was obtained, the patient was taken to operating room and placed on the OR bed in the supine position. He was administered general anesthesia by the Anesthesia Team. Left neck was prepped and draped in the usual sterile fashion. Full timeout was performed identifying correct patient and procedure. Next, a longitudinal incision was made along the anterior border of the sternocleidomastoid. Dissection was carried down through skin and subcutaneous tissues both sharply and with electrocautery. The platysma was divided. I again dissected along the fascial plane in the sternocleidomastoid. The carotid sheath was entered. The facial vein was identified and ligated between 2-0 silk ties and divided. The jugular vein and vagus nerve were retracted in the posterior lateral position. The common carotid artery was circumferentially mobilized and dissected free and controlled with an umbilical tape and Rumel tourniquet at soft point. I then dissected out the external carotid artery and controlled this with Silastic vessel loop in Amador fashion as well as the superior thyroid artery was controlled with Silastic vessel loop in Amador fashion. I then fully mobilized the hypoglossal nerve and divided a little bit of the posterior belly of the digastric muscle to get distal internal carotid artery control, which I controlled with a Silastic vessel loop. At this point, I administered 8000 units of intravenous heparin. This was allowed to circulate for 3 minutes. I then sequentially clamped the internal carotid artery followed by the external common carotid arteries. I then made an arteriotomy and extended with Amador scissors on the normal internal carotid artery and common carotid artery. I then placed a 10-[place] shunt in standard fashion. At this point, I performed a standard endarterectomy with eversion endarterectomy of the external carotid artery. I tailored a good distal endpoint, freed the bed of all intimal debris. The area was flushed with heparinized saline as well. Once good endpoints were obtained, I then performed a patch angioplasty with bovine pericardial patch with running 6-0 Prolene suture. Prior to completion of the suture line, the shunt was removed and the carotid was again sequentially reclamped. I again flushed the artery with heparinized saline. All the arteries were allowed to forward and backbleed. At this point, the suture line was completed. I then restored flow first of the external carotid artery and after several heartbeats to the internal carotid artery. Completion intraoperative duplex demonstrated no intraluminal defects and a good continuous diastolic flow through the internal carotid artery. Satisfied with the result, the heparin was then partially reversed with 50 mg protamine. Once hemostasis was ensured in the wound, the wound was irrigated with antibiotic solution. It was closed in layers with 2-0 and 3-0 Vicryl and 4-0 Monocryl on the skin. Local anesthetic was infiltrated in the skin and subcutaneous tissues as well. Dermabond was applied. All sponge, sharp and instrument counts reported as correct x 2. He was extubated in the operating room, awakened neurologically intact, moving upper and lower extremities appropriately. At this point, he was taken to recovery room in [address] [address] OPERATIVE REPORT Name: SHAKIRA MILLARD Room: [address] M.R.#: [id number] Admission: 05/08/17 Attend Phys: Lan Cool, Discharge: 05/12/17 Date of : 47 Report #: [id number] condition. Again, all counts reported as correct x 2. He will be monitored closely postoperatively in the ICU. <ELECTRONICALLY SIGNED> By: Remington Montoya DO 05/12/17 1520 1752 [id number] Montoya DO /brett
--- NOTE | 2017-05-13 08:47 | CON ---
[address] [address] CONSULTATION Name: SHAKIRA MILLARD Room: [address] IN M.R.#: [id number] Admission: 05/08/17 Attend Phys: Lan Cool, Discharge: 05/12/17 Date of : 47 Report #: [id number] THIS REPORT FOR: //name// CC: FAM unknown Lan Cool [facility] DATE OF SERVICE: 05/10/2017 REQUESTING PHYSICIAN: Lan Cool MD PRIMARY CARE PHYSICIAN: At the [facility]. CHIEF COMPLAINT: Preop evaluation. HISTORY OF PRESENT ILLNESS: The patient is a 72-year-old male who presented with acute onset of slurred speech and right-sided weakness. This has mostly resolved at the time of my evaluation. An acute MRI demonstrated a CVA. He was ultimately diagnosed with a 90% stenosis of the left internal carotid artery. From a cardiovascular standpoint, he presents in a sinus rhythm. His telemetry has been unremarkable. He clinically, was not having exertional chest pain, pressure, or shortness of breath. He has no documented history of heart disease or heart failure. He is without complaints of orthopnea or PND. An echocardiogram has demonstrated grossly normal LV function without wall motion abnormalities or significant valvular abnormality. PAST MEDICAL HISTORY: Significant for hyperthyroidism, prostatism. HOME MEDICATIONS: Included aspirin and methimazole. PAST SURGICAL HISTORY: No recent surgeries. FAMILY HISTORY: No family history of stroke or heart attack. SOCIAL HISTORY: He is a nonsmoker. ALLERGIES: He has no known drug allergies. REVIEW OF SYSTEMS: GASTROINTESTINAL: No abdominal pain, nausea, vomiting. CARDIOVASCULAR: No chest pain or pressure. PULMONARY: No shortness of breath, orthopnea, whe[place]zing [place] [address] CONSULTATION Name: SHAKIRA MILLARD Room: [address] IN [facility].#: [id number] Admission: 05/08/17 Attend Phys: Lan Cool, Discharge: 05/12/17 Date of : 47 Report #: [id number] NEUROLOGICAL: Positive headache, weakness as noted above. HEMATOLOGIC: No anemia or bleeding disorders. RENAL: No history of kidney failure. GENITOURINARY: He does have prostatism. THROAT: Denies any dysphagia. GENERAL: No fevers or chills. PHYSICAL EXAMINATION: VITAL SIGNS: Initially he presented hypertensive and his blood pressures have been ranging in the 140s-150s systolic over 90s. He is in a sinus rhythm from 60-90 beats per minute. He is afebrile. GENERAL: He is pleasant, mildly obese, elderly male. He is alert and oriented, no apparent distress. HEENT: Eyes, EOMs intact. No facial asymmetry. NECK: Supple. No jugular venous distention. CARDIOVASCULAR: Regular. I cannot hear a murmur or S3. LUNGS: Clear to auscultation. ABDOMEN: Soft, nontender. EXTREMITIES: No peripheral edema. LABORATORY DATA: Electrocardiogram is normal. His hemoglobin is 15.5, white blood cell count 8.8. His total cholesterol is 175, LDL is 103, HDL is 58, triglycerides are 73. Echocardiogram, 05/08/2017, ejection fraction of 65-70%, mild LVH, grade 1 diastolic abnormality, no aortic stenosis, no aortic regurgitation, no mitral regurgitation, no mitral stenosis. No pericardial effusion. Negative bubble study for PFO or ASD. IMPRESSION: 1. Acute cerebrovascular accident. He has had a fairly significant recovery. 2. Carotid stenosis. He has a greater than 75% left-sided carotid stenosis and is anticipating carotid endarterectomy tomorrow. 3. Preoperative evaluation. His overall cardiovascular risk is only moderate. I do not see any contraindication to surgery. 4. Mild hypertension. I would treat him with a low dose of losartan or lisinopril on discharge, but I would tend to keep his blood pressure higher than normal at this point. 5. Dyslipidemia. Although his LDL cholesterol is not elevated, but with a diagnosis of peripheral vascular disease he should be on a statin, atorvastatin 20 mg daily should be adequate. 6. Vascular disease. At this point in time, he is asymptomatic [place], [place] [address] CONSULTATION Name: SHAKIRA MILLARD Room: [address] M.R.#: [id number] Admission: 05/08/17 Attend Phys: Lan Cool, Discharge: 05/12/17 Date of : 47 Report #: [id number] given his demonstrated severe vascular disease I would direct recommend an outpatient pharmacologic stress test. <ELECTRONICALLY SIGNED> By: José Antonio Castillo MD, FACC 05/13/17 0847 1105 [id number] Antonio Castillo MD, FACC /nt
--- NOTE | 2017-05-14 11:07 | S ---
[address] [address] SURGICAL PATH RPT PROCEDURE Name: BRADLEY YOUSIF Room: [address] M.R.#: [id number] Admission: 05/08/17 Date of : 47 Discharge: 05/12/17 Report #: [id number] Path Case #: [id number] PATHOLOGY REPORT COLLECTION DATE: 05/12/2017 RECEIVED DATE: 05/12/2017 SUBMITTING PHYS: Dr. Remington Montoya OTHER PHYS: Dr. Lan Cool SPECIMEN(S) RECEIVED: A.Left carotid artery plaque * * * * * * * * * * * * FINAL DIAGNOSIS: Left carotid artery plaque: - Fibrointimal atherosclerotic plaque with calcification. (REMIGIO:negar; 05/14/2017) PATHOLOGIST: Jozef Redd M.D. REPORT ELECTRONICALLY SIGNED BY: Jozef Redd M.D. DATE/TIME: 05/14/2017 11:07 * * * * * * * * * * * * GROSS PATHOLOGY: Received in formalin labeled "Bradley Yousif, left carotid artery plaque," is a roughly tubular segment of pale yellow-cordon to dark brown, rubbery tissue measuring 2.6 x 1.3 x 0.8 cm in greatest dimensions. Sectioning of the specimen reveals pale cordon to yellow-cordon cut surfaces with no gross evidence of calcification. The specimen is submitted representatively in cassette A1. (DAC; 05/13/2017) CLINICAL HISTORY: Left carotid stenosis INITIAL CPT CODE(S): A; 59590, 85055 Professional services performed by [facility] at [facility], [address] [place] [id number]. Technical services performed by [facility] at [address] [place] [address], [address], [place] [address]. [facility] [address] [place] [address] SURGICAL PATH RPT PROCEDURE Name: BRADLEY YOUSIF Room: [address] IN ..#: [id number] Admission: 05/08/17 Date of : 47 Discharge: 05/12/17 Report #: [id number] Path Case #: [id number] [address] [address] PHONE: [phone] DIRECTOR: Hung Koehler M.D. * * * END OF REPORT * * *
== END 2017-05-12 15:10 | disposition home or self-care (01) | DRG 38 ==
LOC: M.ERS 07:21 → M.TBA-ER 08:44 → M.2W 08:44 → M.ICU 08:44 → M.2W 09:33 → M.ICU 05-09 00:03
PROVIDERS: Family Medicine; Surgery; ADMIT Family Medicine
PROC: 03UJ0JZ Supplement Left Common Carotid Artery with Synthetic Substitute, Open Approach (ICD-10-PCS; principal; 2017-05-11)
PROC: 03CJ0ZZ Extirpation of Matter from Left Common Carotid Artery, Open Approach (ICD-10-PCS; principal; 2017-05-11)
DX: I63.232 Cerebral infarction due to unspecified occlusion or stenosis of left carotid arteries (principal); J98.11 Atelectasis; G81.91 Hemiplegia, unspecified affecting right dominant side; E78.5 Hyperlipidemia, unspecified; R33.9 Retention of urine, unspecified; R31.9 Hematuria, unspecified; E05.90 Thyrotoxicosis, unspecified without thyrotoxic crisis or storm; I10 Essential (primary) hypertension; Z84.89 Family history of other specified conditions; Z79.899 Other long term (current) drug therapy; Z79.82 Long term (current) use of aspirin; Z87.891 Personal history of nicotine dependence